=== PATIENT | female | born 1985 | race Hispanic/Latino ===

== ENCOUNTER 2022-02-05 22:37 | Observation (INO) | payer SELFPAY ==
[2022-02-05] MEDS ORDERED: Ondansetron PF 4 MG/2 ML Vial IVP PRN (23:01)
[2022-02-05] MEDS ORDERED: hydrALAZINE 20 MG/ML VIAL SLOW IVP PRN (23:01)
[2022-02-05] MEDS ORDERED: Acetaminophen 500 MG TAB PO PRN (23:01)
[2022-02-05] MEDS ORDERED: Promethazine HCl 25 MG/ML VIAL IM PRN (23:01)
[2022-02-05] MEDS ORDERED: Butorphanol Tartrate 1 MG/ML VIAL SLOW IVP PRN (23:01)
[2022-02-05] MEDS ORDERED: Lactated Ringer's 1,000 ML IV SCH (23:15)
[2022-02-05] MEDS ORDERED: Morphine 4 MG/ML VIAL SLOW IVP PRN (23:47)
[2022-02-05] MEDS ORDERED: Morphine 4 MG/ML VIAL ONE (23:47)
[2022-02-06] MEDS ORDERED: Dexamethasone 10 MG/ML VIAL SLOW IVP SCH (00:15)
[2022-02-06] MEDS ORDERED: levETIRAcetam 500 MG/5 ML VIAL SLOW IVP SCH ×2 (00:15→09:00)
[2022-02-06 01:19] VITALS: BMI 28.9
[2022-02-06] MEDS ORDERED: Morphine 4 MG/ML VIAL SLOW IVP SCH (02:30)
[2022-02-06] MEDS: Dexamethasone 4 mg/ml Vial SLOW IVP SCH ×2 (06:11→11:52)
[2022-02-06 13:55] LABS: SARS-CoV-2 NAA Rapid Test Not Detected (NotDetected)
== END 2022-02-06 14:47 | disposition short-term general hospital (02) ==
LOC: CSHLD 22:37
PROVIDERS: ADMIT Obstetrics & Gynecology; ATTEND Obstetrics & Gynecology
DX: O99.353 Diseases of the nervous system complicating pregnancy, third trimester (principal); R56.9 Unspecified convulsions; Z3A.36 36 weeks gestation of pregnancy; W10.8XXA Fall (on) (from) other stairs and steps, initial encounter
CPT/HCPCS: 70551; 96374; 96375; 96376; 99285; G0378; J1100; J1953; J2270